=== PATIENT | female | born 1980 | race Caucasian/White ===

== ENCOUNTER 2022-01-09 06:18 | Day surgery (SDC) | payer OTHER, SELFPAY ==
--- NOTE | 2021-12-23 16:18 | PCM.HP.BLA ---
History and Physical Date of Admission: 01/09/22 The patient is a 41 year old female presenting for pre-operative visit. She is scheduled for LAVH, bilateral salpingectomy, for adenomosis, pelvic pain, AUB on 01/09/22. Procedure discussed along with risks, benefits and complications. Other alternatives discussed for management. Consent form signed? Yes. ? ? PAST MEDICAL HISTORY PAST MEDICAL HISTORY Diagnosis Date ? Dysmenorrhea ? ? Excessive or frequent menstruation ? ? Heavy periods ? Irregular menstrual cycle ? ? Irregular periods ? Other and unspecified ovarian cysts ? ? ? PAST SURGICAL HISTORY PAST SURGICAL HISTORY Procedure Laterality Date ? CARPAL TUNNEL Bilateral 01/15/2017, 01/29/2017 ? ESSURE ? 07/2007 ? EXTRACTION ERUPTED TOOTH ? ? ? wisdom teeth ? INSERTION OF IUD ? 11/09/2014, 12/2018 ? TONSILLECTOMY PRIMARY/SECONDARY <AGE 12 ? ? ? Tonsillectomy ? ? ? CURRENT MEDICATIONS Current Outpatient Medications Medication Sig Dispense Refill ? meloxicam (MOBIC) 15 mg tablet Take 1 tablet by mouth once daily. 20 tablet 0 ? levonorgestrel (MIRENA) 20 mcg/24 hours (5 yrs) 52 mg IUD 1 Each by INTRAUTERINE route as directed. 1 Each 0 ? No current facility-administered medications for this visit. ? ? ALLERGIES: Environmental [Other] ? PERSONAL HISTORY: SOCIAL HISTORY Social History ? Tobacco Use ? Smoking status: Never ? Smokeless tobacco: Never Vaping Use ? Vaping Use: Never used Substance Use Topics ? Alcohol use: Yes ? ? Comment: Rarely ? Drug use: No ? FAMILY HISTORY: FAMILY HISTORY FAMILY HISTORY Problem Relation Age of Onset ? Hypertension Mother ? ? Breast Cancer Maternal Grandmother ? ? Hypertension Maternal Grandmother ? ? Heart Maternal Grandmother ? ? Stroke Maternal Grandfather ? ? ? REVIEW OF SYMPTOMS: GENERAL: denies fevers or chills ENDOCRINOLOGY: has not been on steroids Cardiology : denies palpitations or chest pain Respiratory: denies SOB or cough Hematology: denies history of prolonged bleeding or easy bruising or VTE Allergy: Denies history of personal or family history of allergy to anesthesia ? PHYSICAL EXAMINATION: ? VITALS: Last menstrual period 10/30/2014. ? GENERAL: The patient is well nourished, well hydrated in no acute distress. , The patient is oriented to time, place, and person. NECK: Supple. No lynphadenopathy, normal thyroid, no thyromegaly. LUNGS: Clear to auscultation bilaterally. no wheezes, rhonchi or rales HEART: Regular rate and rhythm, Normal heart sounds, and No murmurs or gallops ? IMPRESSION: adenomyosis, AUB, pelvic pain ? PLAN: The risks/benefits/alternatives and personal involved for the planned LAVH, bilateral salpingectomy were reviewed with the patient. Her questions were answered to her satisfaction and she desires to proceed. Consent was signed. I reviewed with her postop instructions and expectations. ? ? I have reviewed and updated past medical and surgical history, medications and allergies Assessment & Plan Assessment/Plan (1) Abnormal uterine bleeding (AUB): (2) Adenomyosis of the uterus: (3) Pelvic pain:
[2022-01-03 15:37] LABS: Hematocrit 43.2 % (37-47); Hemoglobin 14.5 g/dL (12.0-15.0); Mean Corp Hgb Conc 33.6 g/dL (32-36); Mean Corpuscular Hgb 28.8 pg (27.0-32.0); Mean Corpuscular Volume 85.9 fL (81-99); Mean Platelet Vol. 9.4 fl (6.2-12.0); Platelet Count 333 K/mm3 (150-450); RBC Distribution Width CV 12.4 % (11.6-14.6); RBC Distribution Width SD 38.6 fl (35.1-43.9); Red Blood Count 5.03 M/mm3 (4.2-5.4); White Blood Count 8.3 K/mm3 (4.4-11.0)
[2022-01-03 15:57] LABS: Magnesium 2.1 mg/dL (1.6-2.6)
[2022-01-09] VITALS (11 sets, daily range): BP systolic 90–140; BP diastolic 57–85; PULSE 81–96; RESP 16–18; TEMP 36–36.8; O2SAT 96–100; BMI 27.5
[2022-01-09 07:03] LABS: Internal QC Validated? YES +Cl - CLEAR BKGD; Pregnancy, Urine Negative Negative
[2022-01-09] MEDS: Acetaminophen 500 MG Tablet 1000 MG PO ×2 (07:11→13:12)
[2022-01-09] MEDS: Celecoxib 200 MG Capsule 400 MG PO (07:11)
[2022-01-09] MEDS: Phenazopyridine 95 MG Tablet 190 MG PO (07:11)
[2022-01-09] MEDS: Gabapentin 600 MG Tablet PO (07:12)
[2022-01-09] MEDS: Lactated Ringers 1,000 ML 15 ML IV (07:13)
[2022-01-09] MEDS: Enoxaparin 40 MG/0.4 ML Syringe SC (07:15)
[2022-01-09 08:01] LABS: Bedside Glucose 96 mg/dL (74-106)
[2022-01-09] MEDS: Lactated Ringers @ 70 MLS/HR 70 ML IV (08:25)
--- NOTE | 2022-01-09 08:27 | DCINST_ITS ---
Discharge Instructions Diet Discharge Diet: Light diet - advance as tolerated Activity Discharge Activity: May Drive (when not using narcotic pain medications and you feel safe to do so) and May Shower May resume sexual activity in: 6-8 weeks Dressing / Incision Cleanse incision/area with: Soap & Water and - (YOur incision has skin glue, it can get wet. Leave it on for 10-14 days. ) Follow Up Care Test Results: Test results from this visit will be discussed in further detail at your follow- up appointment, if applicable. Discharge Plan Admission Primary Reason for Your Visit: Hysterectomy Attending Provider: Lillie Daniel Primary Care Provider: Saurabh Garcia Instructions Patient Instructions: Hysterectomy Vaginal Dc Discharge Orders/Prescriptions Prescriptions: New ibuprofen [ibuprofen] 600 mg tablet 600 mg PO Q6H PRN PRN (Reason: moderate pain (scale score 5-6)) 20 Days Qty: 60 1RF oxycodone 5 mg tablet 5 mg PO Q6H PRN PRN (Reason: severe pain) 5 Days Qty: 12 0RF Continued albuterol sulfate 90 mcg/actuation Hfa Aerosol Inhaler 1 inh INHALATION Q6H PRN (Reason: ASTHMA) Referrals / Follow Up: Saurabh Garcia MD [Primary Care Provider] - Disposition Disposition (needs filled in before D/C Order can be placed): Home, Self Care
--- NOTE | 2022-01-09 08:30 | HYST_PTH ---
PATIENT: SHILPI YOUNGBLOOD LOC: [facility] [place] U#:[id number] AGE/SX: 41/F ROOM: RE01/09/[address]: Dr. Lillie Daniel MD : [id number] BED: DIS: 01/09/2022 SPEC #: [id number] RECD: 01/09/22 11:20 STATUS: ILA REQ #: [id number] GANGA: 01/09/22 08:[address]: Lillie Daniel DEPT: SURGICAL PATHOLOGY RECD BY: Roxane Zapata ENTERED: 01/09/22 11:44 SP TYPE: HYSTERECT OTHR DR: Dr. Saurabh Garcia MD Tissues: Uterus, NOS Procedures: Surgery Specimen Level V HEADER OPERATION: ERAS, laparoscopic vaginal hysterectomy, salpingectomy PRE-OP DIAGNOSIS: Abnormal uterine bleeding, adenomyosis of uterus, pelvic pain TISSUE SUBMITTED: Uterus, cervix and bilateral fallopian tubes MICROSCOPIC DIAGNOSIS Uterus, hysterectomy: Cervix ? nabothian cysts and mild chronic inflammation. Endometrium ? transition endometrium with focal cystic change. Benign endocervical/endometrial polyp, inflamed. Myometrium ? leiomyoma and focal superficial adenomyosis. Right and left fallopian tubes ? benign paratubal cysts. AM:christine 01/10/2022 MICROSCOPIC DESCRIPTION Slides are reviewed. GROSS DESCRIPTION Received in fixative is one container labeled with the patient's name and designated uterus. The specimen consists of a uterus with attached cervix with two detached fallopian tubes. The uterus with cervix measures 9 x 6 x 4 cm and weighs 104 gm. The ectocervix is unremarkable. The cervical os is oval in contour. The endocervical canal measures 3.5 cm in length and is grossly unremarkable. The triangular endometrial cavity measures 3.5 x 3 cm. The velvety, light maya endometrium measures up to 0.2 cm in thickness. A light maya polyp is present on the posterior endometrial surface measuring 0.6 cm in greatest dimension. The right fallopian tube measures 6 cm in length and 0.7 cm in average diameter. Serial sections do not reveal mass lesions. The left fallopian tube contains a spring-like metallic device consistent with Essure device. This device is intact and shows no migration. Buttermaker Continuous Churn sections are submitted as follows: 1 - anterior cervix, 2 - posterior cervix, 3 & 4 - anterior uterine wall, 5 & 6 - posterior uterine wall, 7 - endometrial polyp, 8 - myometrial mass, 9 - fallopian tube without Essure device, 9??fallopian tube with Essure device. / AM:christine 01/09/2022 TC:1 CPT: 61184
--- NOTE | 2022-01-09 08:31 | PCM.OPRPT ---
Problems Associated Problem List Diagnoses (1) Abnormal uterine bleeding (AUB): (2) Adenomyosis of the uterus: (3) Pelvic pain: Report of Operation Date of Procedure: 01/09/22 Pre-Operative Diagnosis: menorrhagia, adenomyosis, dysmenorrhea, pelvic pain Post-Operative Diagnosis: same Surgery/Procedure Performed:: LAVH with bilateral salpingectomy Description of Surgical Findings:: Boggy uterus, normal tubes, ovaries and remainder of peritoneal cavity. Normal upper abdomen and appendix. Surgeon: Lillie Daneil industrial machine assembler: Franca Jacobs industrial machine assembler: Noe padron Type of Anesthesia: Epidural Anesthesiologist: Cinthia Hernandez Special Medications: none Specimen's removed: uterus, cervix and bilateral fallopian tubes Drains: none Estimated Blood Loss (mL): 35 Fluids Replaced: 1100 Description of Procedure: The patient was taken to the operating room where she was prepped and draped in the dorsal lithotomy position. Her arms were tucked to the side and padded and her legs were placed in the yellowfin stirrups. Care was taken to ensure that she was placed in a neurologically safe and neutral position. A weighted speculum was placed in the vagina and the anterior lip of the cervix was grasped with a single-tooth tenaculum. The uterus sounded to 9 centimeters. The RENALDO uterine manipulator was placed and secured. The Mcgill catheter was placed to straight drain. Attention was turned to the abdominal portion of the case. Before skin incisions were made they were infiltrated with 0.5% Marcaine solution for local anesthetic. A 5 mm intraumbilical incision was made and while tenting the anterior abdominal wall up with towel clamps a 5 mm blade less trocar and sleeve were advanced directly into the peritoneal cavity. Peritoneal placement was confirmed with the laparoscope the pneumoperitoneum was created, and the underlying abdominal contents were intact. The patient was placed in Trendelenburg and the above findings were noted. Right and left lateral 5 mm trochars were placed under direct visualization without difficulty. The antimesenteric portion of the tube was clamped sealed and transected serially on both sides with the LigaSure device. The round ligaments were clamped sealed and transected and a window was made in the peritoneum. The utero-ovarian ligaments were then clamped, sealed and transected with the LigaSure device and the pedicles were hemostatic The bladder flap was dissected down with the LigaSure device and blunt dissection and the uterine arteries were then skeletonized. The uterine arteries were clamped, sealed and transected on both sides with the LigaSure device. At this point the pedicles were all examined and found to be hemostatic. Attention was turned to the vaginal portion of the case. 1% lidocaine with dilute epinephrine solution was used to infiltrate the anterior vaginal epithelium over the cervix. An incision was made from 3 to 9:00 across the anterior vaginal epithelium and the vaginal epithelium was dissected back with blunt sharp dissection. The anterior colpotomy incision was made. The vaginal epithelium on each side of the cervix at 3 and 9:00 was clamped, transected and suture ligated. The next pedicle contained the anterior peritoneum and part of the cardinal ligament. The pedicle was was clamped with a Jacob clamp, transected and suture-ligated. Hemostasis was noted. The uterine fundus was brought through the anterior colpotomy incision. The uterosacral ligaments and vaginal cuff were secured with Jacob clamps. The pedicles were transected. The uterus and cervix were then amputated and removed. The pedicles were secured with an 0 Vicryl suture. At this point, the pedicles were all examined and hemostasis was assured. The vaginal cuff was then closed in a horizontal fashion with interrupted 0 Vicryl [id number] sutures. Care was taken to secure the vagina to the uterosacral ligaments. A sponge stick was placed in the vagina to help place traction against the vaginal cuff. The laparoscope was reinserted into the abdomen and the pneumoperitoneum was re-created. The pedicles were reexamined and found to be hemostatic. The vaginal cuff was hemostatic. The ureters were seen on both sides and were nondilated and peristalsing at the end of the case. Brandon was placed over the peritoneal edges and no active bleeding was noted through the Brandon. The right and left lateral ports were taken out and the sites were hemostatic. The pneumoperitoneum was released and even under low pressure there was no bleeding of any of the pedicles are vaginal cuff. The umbilical port was removed. The umbilical skin incisions were closed with Monocryl suture and skin glue by Dr. Orlando and the student. The assistance provided uterine manipulation, camera guidance and tissue manipulation during the procedure.. The vaginal instruments were removed by me and a vaginal sweep was completed by me. The surgery was performed by me with assistance other than the portions dictated as above. There were no qualified residents available for this procedure. All sponge lap and needle counts were correct and the patient was transferred to the recovery room in stable condition. Grafts/Implants Used: none Procedure Start Time: 08:50 Procedure Stop Time: 09:50 Complications none Admit VTE Documentation VTE Present on Admission: No VTE Mechan Device Prophylaxis: SCD's VTE Pharm Prophylaxis ordered?: No Reason prophylaxis not ordered:: Procedure Not Indicated
[2022-01-09] MEDS: Cefazolin 2 GM in 0.9% Normal Saline 100 ML IV (08:42)
[2022-01-09] MEDS: Ondansetron 4 MG/2 ML Vial IV (08:51)
[2022-01-09] MEDS: Bupivacaine 0.25% 30 ML Vial (09:44)
[2022-01-09 12:39] LABS: Hematocrit 39.4 % (37-47); Hemoglobin 13.4 g/dL (12.0-15.0); Mean Corpuscular Hgb 29.6 pg (27.0-32.0); Mean Platelet Vol. 8.9 fl (6.2-12.0); Platelet Count 277 K/mm3 (150-450); RBC Distribution Width CV 12.5 % (11.6-14.6); Red Blood Count 4.53 M/mm3 (4.2-5.4)
[2022-01-09] MEDS: oxyCODONE 5 MG Tablet PO (13:13)
--- NOTE | 2022-01-09 15:26 | SUR.PHASEII ---
DR GRECO OKAYED FOR PT TO BE DISCHARGED
== END 2022-01-09 15:27 | disposition home or self-care (01) ==
LOC: SDC 06:20 → AC 06:20
PROVIDERS: Anesthesiology; PCP Family Medicine; Referring Provider Obstetrics & Gynecology; Visit Provider Obstetrics & Gynecology
PROC: 0UT9FZZ Resection of Uterus, Via Natural or Artificial Opening With Percutaneous Endoscopic Assistance (ICD-10-PCS; CPT 58552; principal; 2022-01-09 08:10)
DX: N80.03 Adenomyosis of the uterus (principal); N88.8 Other specified noninflammatory disorders of cervix uteri; N72 Inflammatory disease of cervix uteri; N84.0 Polyp of corpus uteri; D25.9 Leiomyoma of uterus, unspecified; N83.8 Other noninflammatory disorders of ovary, fallopian tube and broad ligament
CPT/HCPCS: 58552; 00944; 36415; 81025; 82962; 83735; 85027; 86850; 86900; 86901; 88307; J7120; J2405; J3475